=== PATIENT | female | born 1985 | race American Indian/Alaskan Native ===

== ENCOUNTER 2021-01-02 19:31 | Emergency (ER) | payer MEDICAID ==
--- NOTE | 2021-01-02 20:23 | Event Note ---
ED Screening Note Date of service: 01/02/21 Time: 20:22 ED Screening Note: Pt c/o sudden onset of periumbilical pain x today 12 weeks , denies vaginal bleeding or urinary sxs hx of periumbilical hernia-hernia noted on exam with significant tenderness-pt states unable to reduce This initial assessment/diagnostic orders/clinical plan/treatment(s) is/are subject to change based on patients health status, clinical progression and re- assessment by fellow clinical providers in the ED. Further treatment and workup at subsequent clinical providers discretion. Patient/guardian urged not to elope from the ED as their condition may be serious if not clinically assessed and managed. Initial orders include: labs US
[2021-01-02 20:47] LABS: Bilirubin,Urine NEG (Negative); Blood,Urine NEG (Negative); Color,Urine Yellow (Yellow); Mucus,Urine FEW /HPF; Protein,Urine <15 mg/dL mg/dL (Negative); WBC,Urine < 1.0 /HPF (0.0-6.0)
[2021-01-02 20:48] LABS: Basophils # (Auto) 0.1 K/mm3 (0.0-0.1); Basophils % (Auto) 1.1 % (0.0-1.8); Eosinophils # (Auto) 0.1 K/mm3 (0.0-0.4); Eosinophils % (Auto) 2.1 % (0.0-4.3); Hematocrit 35.8 % (30.3-42.9); Hemoglobin 11.8 gm/dl (10.1-14.3); Lymphocytes # (Auto) 2.1 K/mm3 (1.2-5.4); Lymphocytes % (Auto) 30.9 % (13.4-35.0); Mean Corpuscular HGB Conc 33 % (30-34); Mean Corpuscular Volume 84 fl (79-97); Monocytes # (Auto) 0.4 K/mm3 (0.0-0.8); Monocytes % (Auto) 6.2 % (0.0-7.3); Platelet Count 195 K/mm3 (140-440); Red Blood Count 4.25 M/mm3 (3.65-5.03); Red Cell Distribution Width 13.5 % (13.2-15.2)
[2021-01-02 21:12] LABS: Alanine Aminotransferase 15 units/L (7-56); Albumin 3.8 g/dL (3.9-5); Blood Urea Nitrogen 12 mg/dL (7-17); Calcium 8.9 mg/dL (8.4-10.2); Hemolysis Index 9
[2021-01-02 21:13] LABS: BUN/Creatinine Ratio 17
--- NOTE | 2021-01-02 22:11 | Ultrasound Report ---
ULTRASOUND ABDOMEN, COMPLETE INDICATION: periumbilical hernia, pain, unable to reduce. COMPARISON: No relevant prior imaging study available. FINDINGS: Pancreas: No significant abnormality. Abdominal Aorta: Normal size. IVC: No significant abnormality. Liver: The liver measures 14.8 cm in length. No significant abnormality. Normal hepatopedal blood fl ow in the main portal vein. Gallbladder: Collapsed with no acute abnormality. Bile ducts: No significant abnormality. Common bile duct measures 1 mm. Kidneys: Right: 11.9 cm in length. No significant abnormality. Left: 11.1 cm in length. No signif icant abnormality. Spleen: No significant abnormality. Free fluid: None. Additional Findings: None. IMPRESSION: 1. No sonographic abnormality of the abdomen. Signer Name: Michael Franklin MD Signed: 01/02/2021 10:06 PM Workstation Name: [id number]
[2021-01-02 22:13] VITALS: BP 128/70
--- NOTE | 2021-01-02 22:13 | Ultrasound Report ---
OB Ultrasound HISTORY: pain, 12 weeks . TECHNIQUE: Grayscale and color imaging performed. COMPARISON: No recent comparison imaging FINDINGS: Transabdominal and endovaginal imaging was performed. Uterus measures 12.2 x 8.3 x 7.8 cm. Uterus appears lobulated most likely representing fibroid diseas e. There is an intrauterine gestation with crown-rump length measuring 3.4 cm correlating with an EGA of 10 weeks and 2 days. Estimated gestational age clinically is 10 weeks and 1 day. heart rate is 176 bpm. There are bilateral ovarian cysts which are most likely functional. A tiny nabothian cyst is also pre sent. IMPRESSION: Single viable intrauterine gestation as above. Signer Name: Michael Franklin MD Signed: 01/02/2021 10:09 PM Workstation Name: [id number]
--- NOTE | 2021-01-02 22:41 | Emergency Department Report ---
ED Abdominal Pain HPI - General Chief Complaint: Abdominal Pain Stated Complaint: 10WKS PREG/ABD PAIN PUI?: No Time Seen by Provider: 01/02/21 20:20 Source: patient Mode of arrival: Ambulatory Limitations: No Limitations - History of Present Illness Initial Comments: CC: "Pain at my hernia. HPI: This is a 35 yo female who is curently 10 weeks 1 day who presents wtih severe 10/10 pain at site of umbilical hernia which occurred this afternoon. Sharp pain at the umbilical hernia radiating to epigastric region. She denies vomiting or constipation. She ate prior to pain onset. Pain was relieved when she laid flat for ultrasound exam. She denies vaginal bleeding. Provider at triage documented tender hernia upon arrival. NANCY 07/30/2021 Complaint: abdominal pain -: Gradual, This evening Location: periumbilical Radiation: epigastric Severity: severe Severity scale (0 -10): 8 Quality: sharp Consistency: now resolved Improves With: other (laying flat) Worsens With: other (certain position and palpation) Context: other (hx of umbilical hernia) Associated Symptoms: denies other symptoms - Related Data Home Medications Medication Instructions Recorded Confirmed Last Taken Spironolactone [Aldactone] 25 mg PO QDAY 09/08/15 10/19/15 10/18/15 09:00 amLODIPine [Norvasc] 5 mg PO DAILY 09/08/15 10/19/15 10/18/15 09:00 Allergies Allergy/AdvReac Type Severity Reaction Status Date / Time Penicillins AdvReac Unknown Verified 09/08/15 11:57 ED Review of Systems ROS: Stated complaint: 10WKS PREG/ABD PAIN Other details as noted in HPI Comment: All other systems reviewed and negative Constitutional: denies: fever, malaise Respiratory: denies: cough, shortness of breath Gastrointestinal: abdominal pain. denies: vomiting, diarrhea ED Past Medical Hx - Past Medical History Previous Medical History?: Yes Hx Hypertension: Yes Additional medical history: Umbilical Hernia - Surgical History Past Surgical History?: Yes Additional Surgical History: x 1. x 2 - Social History Smoking Status: Never Smoker Substance Use Type: None - Medications Home Medications: Home Medications Medication Instructions Recorded Confirmed Last Taken Type Spironolactone [Aldactone] 25 mg PO QDAY 09/08/15 10/19/15 10/18/15 09:00 History amLODIPine [Norvasc] 5 mg PO DAILY 09/08/15 10/19/15 10/18/15 09:00 History ED Physical Exam - General Limitations: No Limitations General appearance: alert, in no apparent distress, other (pleasant, smiling, appears comfortable) - Head Head exam: Present: atraumatic, normocephalic - Eye Eye exam: Present: normal appearance - ENT ENT exam: Present: mucous membranes moist - Neck Neck exam: Present: normal inspection, full ROM - Respiratory Respiratory exam: Present: normal lung sounds bilaterally. Absent: respiratory distress, wheezes, rales, rhonchi - Cardiovascular Cardiovascular Exam: Present: regular rate, normal rhythm, normal heart sounds. Absent: systolic murmur, diastolic murmur, rubs, gallop - GI/Abdominal GI/Abdominal exam: Present: soft, normal bowel sounds, hernia (small 2 cm soft reducible hernia while in supine), other (gravid abdomen). Absent: tenderness, guarding, rebound - Extremities Exam Extremities exam: Present: normal inspection - Neurological Exam Neurological exam: Present: alert, oriented X3 - Psychiatric Psychiatric exam: Present: normal affect, normal mood - Skin Skin exam: Present: warm, dry, intact, normal color. Absent: rash ED Course Vital Signs 01/02/21 01/02/21 20:16 22:13 Temperature 98.6 F Pulse Rate 71 75 Respiratory 17 16 Rate Blood Pressure 148/76 Blood Pressure 128/70 [Right] O2 Sat by Pulse 100 99 Oximetry ED Medical Decision Making - Lab Data Result diagrams: 01/02/21 20:30 01/02/21 20:30 Laboratory Results - last 24 hr 01/02/21 01/02/21 01/02/21 20:23 20:30 20:30 WBC 6.8 RBC 4.25 Hgb 11.8 Hct 35.8 MCV 84 MCH 28 MCHC 33 RDW 13.5 Plt Count 195 Lymph % (Auto) 30.9 Frontier % (Auto) 6.2 Eos % (Auto) 2.1 Baso % (Auto) 1.1 Lymph # (Auto) 2.1 Frontier # (Auto) 0.4 Eos # (Auto) 0.1 Baso # (Auto) 0.1 Seg Neutrophils % 59.7 Seg Neutrophils # 4.1 Sodium 140 Potassium 4.3 Chloride 104.0 Carbon Dioxide 25 Anion Gap 15 BUN 12 Creatinine 0.7 Estimated GFR > 60 BUN/Creatinine Ratio 17 Glucose 146 H Calcium 8.9 Total Bilirubin < 0.20 AST 13 ALT 15 Alkaline Phosphatase 34 L Total Protein 6.2 L Albumin 3.8 L Albumin/Globulin Ratio 1.6 Lipase 28 HCG, Quant Urine Color Yellow Urine Turbidity Clear Urine pH 6.0 Ur Specific [place] 1.029 Urine Protein <15 mg/dl Urine Glucose (UA) Neg Urine Ketones Neg Urine Blood Neg Urine Nitrite Neg Urine Bilirubin Neg Urine Urobilinogen 2.0 Ur Leukocyte Esterase Neg Urine WBC (Auto) < 1.0 Urine RBC (Auto) 1.0 U Epithel Cells (Auto) 1.0 Urine Mucus Few 01/02/21 20:30 WBC RBC Hgb Hct MCV MCH MCHC RDW Plt Count Lymph % (Auto) Frontier % (Auto) Eos % (Auto) Baso % (Auto) Lymph # (Auto) Frontier # (Auto) Eos # (Auto) Baso # (Auto) Seg Neutrophils % Seg Neutrophils # Sodium Potassium Chloride Carbon Dioxide Anion Gap BUN Creatinine Estimated GFR BUN/Creatinine Ratio Glucose Calcium Total Bilirubin AST ALT Alkaline Phosphatase Total Protein Albumin Albumin/Globulin Ratio Lipase HCG, Quant 33548 H Urine Color Urine Turbidity Urine pH Ur Specific [place] Urine Protein Urine Glucose (UA) Urine Ketones Urine Blood Urine Nitrite Urine Bilirubin Urine Urobilinogen Ur Leukocyte Esterase Urine WBC (Auto) Urine RBC (Auto) U Epithel Cells (Auto) Urine Mucus - Radiology Data Radiology results: report reviewed ULTRASOUND ABDOMEN, COMPLETE INDICATION: periumbilical hernia, pain, unable to reduce. COMPARISON: No relevant prior imaging study available. FINDINGS: Pancreas: No significant abnormality. Abdominal Aorta: Normal size. IVC: No significant abnormality. Liver: The liver measures 14.8 cm in length. No significant abnormality. Normal hepatopedal blood flow in the main portal vein. Gallbladder: Collapsed with no acute abnormality. Bile ducts: No si gnificant abnormality. Common bile duct measures 1 mm. Kidneys: Right: 11.9 cm in length. No significant abnormality. Left: 11.1 cm in length. No significant abnormality. Spleen: No significant abnormality. Free fluid: None. Additional Findings: None. IMPRESSION: 1. No sonographic abnormality of the abdomen. OB Ultrasound HISTORY: pain, 12 weeks . TECHNIQUE: Grayscale and color imaging performed. COMPARISON: No recent comparison imaging FINDINGS: Transabdominal and endovaginal imaging was performed. Uterus measures 12.2 x 8.3 x 7.8 cm. Uterus appears lobulated most likely representing fibroid disease. There is an intrauterine gestation with crown-rump length measuring 3.4 cm correlating with an EGA of 10 weeks and 2 days. Estimated gestational age clinically is 10 weeks and 1 day. heart rate is 176 bpm. There are bilateral ovarian cysts which are most likely functional. A tiny nabothian cyst is also present. IMPRESSION: Single viable intrauterine gestation as above. - Medical Decision Making Clinical impression: Incarcerated hernia spontaneously reduced with position change during ultrasound examination. Patient was given education on how to reduce hernia at home. She explained that normally she is able to push it in. She understands to increase intra-abdominal pressure while will make the hernia prone to incarceration. She understands to lay flat and apply ice if she is unable to immediately reduce the hernia. CBC chemistry within normal limits. Ultrasound reveals viable IUP, abdominal ultrasound did not reveal acute inflammatory process. Patient is discharged home. Critical care attestation.: If time is entered above; I have spent that time in minutes in the direct care of this critically ill patient, excluding procedure time. ED Disposition Clinical Impression: Incarcerated umbilical hernia Disposition: DC-01 TO HOME OR SELFCARE Is pt being admited?: No Does the pt Need Aspirin: No Condition: Stable Instructions: Abdominal Pain (ED), Umbilical Hernia, Adult Referrals: ZHANNA COLBY MD [Primary Care Provider] - 3-5 Days
== END 2021-01-02 22:57 | disposition home or self-care (01) ==
LOC: ED 19:31
DX: O99.611 Diseases of the digestive system complicating pregnancy, first trimester (principal); K42.0 Umbilical hernia with obstruction, without gangrene; Z3A.10 10 weeks gestation of pregnancy; I10 Essential (primary) hypertension; Z98.890 Other specified postprocedural states; Z79.899 Other long term (current) drug therapy; Z88.0 Allergy status to penicillin
CPT/HCPCS: 36415; 76700; 76801; 76817; 80053; 81001; 83690; 84702; 85025

== ENCOUNTER 2021-07-12 13:04 | Outpatient (CLI) | payer MEDICAID ==
[2021-07-12] MEDS ORDERED: ACETAMINOPHEN 500 MG TAB PO NR (15:38)
[2021-07-12 16:18] VITALS: BP 120/75
[2021-07-12 18:53] LABS: Color,Urine Yellow (Yellow)
[2021-07-12 18:57] LABS: Bilirubin,Urine NEG (Negative); Blood,Urine NEG (Negative); Mucus,Urine 1+ /HPF
== END 2021-07-12 16:33 | disposition home or self-care (01) ==
LOC: TRG 13:04 → APU 13:05 → TRG 16:33
PROVIDERS: ATTEND Obstetrics & Gynecology
DX: Z34.93 Encounter for supervision of normal pregnancy, unspecified, third trimester (principal); Z3A.38 38 weeks gestation of pregnancy
CPT/HCPCS: 59025; 81001

== ENCOUNTER 2021-07-13 14:21 | Outpatient (CLI) | payer MEDICAID ==
[2021-07-13 15:19] VITALS: BP 132/71
== END 2021-07-13 16:26 | disposition home or self-care (01) ==
LOC: TRG 14:21 → APU 14:23 → TRG 16:26
DX: O26.893 Other specified pregnancy related conditions, third trimester (principal); R10.9 Unspecified abdominal pain; Z3A.38 38 weeks gestation of pregnancy
CPT/HCPCS: 59025

== ENCOUNTER 2021-07-16 15:45 | Inpatient (IN) | payer MEDICAID ==
[2021-07-16 17:24] LABS: Bacteria,Urine 1+ /HPF (Negative); Bilirubin,Urine NEG (Negative); Blood,Urine NEG (Negative); Color,Urine Yellow (Yellow); Mucus,Urine 3+ /HPF
[2021-07-16 17:48] LABS: Basophils % (Auto) 0.9 % (0.0-1.8); Eosinophils # (Auto) 0.1 K/mm3 (0.0-0.4); Eosinophils % (Auto) 1.4 % (0.0-4.3); Hematocrit 38.4 % (30.3-42.9); Hemoglobin 12.4 gm/dl (10.1-14.3); Lymphocytes # (Auto) 1.3 K/mm3 (1.2-5.4); Lymphocytes % (Auto) 23.6 % (13.4-35.0); Mean Corpuscular HGB Conc 32 % (30-34); Mean Corpuscular Volume 85 fl (79-97); Monocytes # (Auto) 0.5 K/mm3 (0.0-0.8); Monocytes % (Auto) 8.4 % (0.0-7.3); Platelet Count 125 K/mm3 (140-440); Red Blood Count 4.51 M/mm3 (3.65-5.03); Red Cell Distribution Width 14.6 % (13.2-15.2)
[2021-07-16 18:02] LABS: Alanine Aminotransferase 22 units/L (7-56); Uric Acid 4.5 mg/dL (3.5-7.6)
[2021-07-16] MEDS ORDERED: LIDOCAINE (2%) 20 MG/1 ML VIAL 20 ML MDV INFILTRATI ONE (19:42)
[2021-07-16] MEDS ORDERED: METHYLERGONOVINE MALEATE 0.2 MG/ML VIAL IM PRN (19:42)
[2021-07-16] MEDS ORDERED: TERBUTALINE 1 MG/1 ML INJ SUB-Q PRN (19:42)
[2021-07-16] MEDS ORDERED: OXYTOCIN 10 UNIT/1 ML INJ IM PRN (19:42)
[2021-07-16] MEDS ORDERED: LOPERAMIDE 2 MG CAP PO PRN (19:42)
[2021-07-16] MEDS ORDERED: miSOPROStol 200 MCG TAB PR PRN (19:42)
[2021-07-16] MEDS ORDERED: MINERAL OIL 30 ML ORAL LIQD PO PRN (19:42)
[2021-07-16] MEDS ORDERED: ACETAMINOPHEN 325 MG TAB PO PRN ×2 (19:42→21:40)
[2021-07-16] MEDS ORDERED: fentaNYL 100 MCG/2 ML INJ IV PRN (19:42)
[2021-07-16] MEDS ORDERED: CARBOPROST TROMETHAMINE 250 MCG/1 ML INJ IM PRN (19:42)
[2021-07-16] MEDS ORDERED: NalbUPHINE 10 MG/1 ML INJ IV PRN (19:42)
[2021-07-16] MEDS ORDERED: VANCOMYCIN/NS 1 GM/250 ML 1 GM/250 ML BAG IV SCH (20:00)
[2021-07-16] MEDS ORDERED: OXYTOCIN DRIP 30 UNITS/500 ML BAG IV SCH ×2 (20:00)
[2021-07-16] MEDS: LACTATED RINGERS 1,000 ML IV SCH (20:50)
--- NOTE | 2021-07-16 21:05 | History and Physical Report ---
History of Present Illness Date of examination: 07/16/21 Date of admission: 07/16/21 19:43 Chief complaint: Sent here by [facility] for delivery. History of present illness: 36 year old presents for delivery. Patient was sent by [facility] for delivery due to borderline oligohydramnios, chronic hypertension, obesity. Patient received care at [facility] and labs are available. LMP 10/23/2020. EDC 07/30/2021. 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 labs are as follows: B+, antibody screen negative, rubella immune, hepatitis B surface antigen negative, HIV negative, RPR nonreactive, hemoglobin electrophoresis AA, gonorrhea negative, chlamydia negative, trichomonas negative, cystic fibrosis negative, spinal muscular atrophy negative, OSB negative, NIPS low risk, 1 hour sugar test 162 (normal 3 hour OGTT), GBS unknown. Past History Past Medical History: other (umbilical hernia, obesity, chronic hypertension, eczema, IBS, vitamin D deficiency) Past Surgical History: section, other (EAB) [facility] History: herpes (on suppression, no lesions or prodromal symptoms), trichomonas (treated and cured), other (HPV) Family/Genetic History: none Social history: lives with family, full code. denies: smoking, alcohol abuse, prescription drug abuse, IV drug use - Obstetrical History Expected Date of Delivery: 07/30/21 Actual Gestation: 38 Week(s) 0 Day(s) : 5 Para: 3 Hx # Term Pregnancies: 3 Number of Pregnancies: 0 Spontaneous Abortions: 0 Induced : 1 Number of Living Children: 3 Medications and Allergies Allergies Allergy/AdvReac Type Severity Reaction Status Date / Time Penicillins AdvReac Severe Anaphylaxis Verified 07/12/21 13:27 Home Medications Medication Instructions Recorded Confirmed Last Taken Type Spironolactone [Aldactone] 25 mg PO QDAY 09/08/15 10/19/15 10/18/15 09:00 History amLODIPine [Norvasc] 5 mg PO DAILY 09/08/15 10/19/15 10/18/15 09:00 History Active Meds: Active Medications Acetaminophen (Acetaminophen 325 Mg Tab) 650 mg PO Q4H PRN PRN Reason: Pain, Mild (1-3) Carboprost Tromethamine (Carboprost Tromethamine 250 Mcg/1 Ml Inj) 250 mcg IM ONCE PRN PRN Reason: Uterine Bleeding Ephedrine Sulfate (Ephedrine Sulfate 50 Mg/1 Ml Inj) 10 mg IV Q2M PRN PRN Reason: Hypotension Fentanyl (Fentanyl 100 Mcg/2 Ml Inj) 100 mcg IV Q2H PRN PRN Reason: Pain,Severe (7-10) LABOR PAIN Oxytocin/Sodium Chloride (Pitocin/Ns 30 Unit/500ml) 30 units in 500 mls @ 2 mls/hr IV TITR KELLY; Protocol Lactated Ringer's (Lactated Ringers) 1,000 mls @ 125 mls/hr IV DIRECT KELLY Last Admin: 07/16/21 20:50 Dose: 125 mls/hr Documented by: Oxytocin/Sodium Chloride (Pitocin/Ns 30 Unit/500ml) 30 units in 500 mls @ 40 mls/hr IV TITR KELLY; Protocol Vancomycin HCl (Vancomycin/Ns 1 Gm/250 Ml) 1 gm in 250 mls @ 166.667 mls/hr IV Q12H KELLY; Protocol Loperamide HCl (Loperamide 2 Mg Cap) 2 mg PO ONCE PRN PRN Reason: give with Hemabate Methylergonovine Maleate (Methylergonovine Maleate 0.2 Mg/Ml Vial) 0.2 mg IM ONCE PRN PRN Reason: Uterine Bleeding Mineral Oil (Mineral Oil 30 Ml Oral Liqd) 30 ml PO QHS PRN PRN Reason: Constipation Misoprostol (Misoprostol 200 Mcg Tab) 800 mcg ND ONCE PRN PRN Reason: Uterine Bleeding Nalbuphine HCl (Nalbuphine 10 Mg/1 Ml Inj) 10 mg IV Q2H PRN PRN Reason: Pain, Moderate (4-6) Oxytocin (Oxytocin 10 Unit/1 Ml Inj) 10 unit IM ONCE PRN PRN Reason: Uterine Bleeding Terbutaline Sulfate (Terbutaline 1 Mg/1 Ml Inj) 0.25 mg SUB-Q ONCE PRN PRN Reason: Hyperstimulation/Hypertonicity Review of Systems All systems: negative (contractions) - Vital Signs Vital signs: Vital Signs Pulse BP 90 140/88 07/16/21 16:32 07/16/21 16:32 Temp Pulse Resp BP Pulse Ox 98.9 F 84 17 130/74 99 07/16/21 19:40 07/16/21 20:59 07/16/21 19:40 07/16/21 20:42 07/16/21 20:59 ROM plus negative. Low platelet count. 2+ protein on UA. - Physical Exam Abdomen: Positive: normal appearance, soft. Negative: distention, tenderness, guarding, rigidity Genitourinary (Female): Positive: normal external genitalia, normal perenium. Negative: perineal/vulvar lesions (no lesions seen on careful exam with bright light upon admission) Vagina: Positive: normal moisture Uterus: Positive: enlarged. Negative: tender Anus/Rectum: Positive: normal perianal skin Extremities: Negative: tenderness - Obstetrical FHR: category 1 Uterine Contraction Monitor Mode: External Cervical Dilatation: 1.5 (Exam by Dr. Morales) Cervical Effacement Percentage: 70 station: -2 Uterine Contraction Pattern: Irregular Uterine Contraction Intensity: Mild Results Result Diagrams: 07/16/21 17:00 07/16/21 17:00 Abnormal lab results 07/16/21 07/16/21 07/16/21 Range/Units 17:00 17:00 17:05 Plt Count 125 L (140-440) K/mm3 [place] % (Auto) 8.4 H (0.0-7.3) % Creatinine 0.5 L (0.6-1.2) mg/dL Lactate Dehydrogenase 215 H (91-180) units/L U Epithel Cells (Auto) 15.0 H (0-13.0) /HPF All other labs normal. Assessment and Plan A: at 38 weeks gestation. Preeclampsia superimposed on chronic hypertension. Obesity. Borderline oligohydramnios. Previous section and 2 previous successful VBACs. HSV 2 positive with no lesions or prodromal symptoms. GBS unknown. P: Admit. Continuous EFM. Preeclamptic labs. Patel bulb for augmentation of labor. Valtrex for continued suppression of HSV 2. Vancomycin for GBS prophylaxis. Consulted with Dr. Morales re: this patient.
[2021-07-16 21:11] LABS: Alanine Aminotransferase 23 units/L (7-56); Albumin 3.3 g/dL (3.9-5); Blood Urea Nitrogen 5 mg/dL (7-17); Calcium 8.6 mg/dL (8.4-10.2); Hemolysis Index 7
[2021-07-16 21:12] LABS: BUN/Creatinine Ratio 10
--- NOTE | 2021-07-16 21:38 | Event Note ---
Date: 07/16/21 pt evaluated and FHR category I remains. Plan of care discussed again with the double chow stein's balloon and pt agreed. Double chow 80/80cc placed under aseptic technique. Will give low dose pitocin, consents signed for TOLAC. pelvic 1-2/70/-2 vx/intact. pt with irregular ctx. Expect
[2021-07-16] MEDS ORDERED: BUTORPHANOL 2 MG/1 ML INJ IV PRN (21:40)
[2021-07-16] MEDS: fentaNYL 100 MCG/2 ML INJ IV PRN (22:10)
[2021-07-16] MEDS: valACYclovir 500 MG TAB PO SCH (22:15)
[2021-07-17] MEDS: fentaNYL 100 MCG/2 ML INJ IV PRN ×2 (03:35→18:20)
[2021-07-17] MEDS: LACTATED RINGERS 1,000 ML IV SCH ×4 (05:03→19:54)
--- NOTE | 2021-07-17 09:06 | Event Note ---
Date: 07/17/21 pt evaluated and chow bulb removed by gentle traction and pelvic now -/-2; FHR category I and pitocin at 6mu/min; pt desires something to eat. IV pitocin turned off. Will give diet (crackers and juice) and then restart the pitocin in 1hr. Expect . Ctx without a pattern however pt states she feels them regularly.
[2021-07-17] MEDS ORDERED: NalbUPHINE 10 MG/1 ML INJ IV PRN (19:17)
[2021-07-17] MEDS ORDERED: ePHEDrine SULFATE 50 MG/1 ML INJ IV PRN (19:17)
[2021-07-17] MEDS ORDERED: ONDANSETRON 4 MG/2 ML INJ IV PRN ×2 (19:17→22:49)
[2021-07-17] MEDS ORDERED: LACTATED RINGERS 250 ML IV SOLN IV ONE (19:17)
[2021-07-17] MEDS ORDERED: NALOXONE 2 MG/2 ML INJ IV PRN (19:17)
[2021-07-17] MEDS ORDERED: diphenhydrAMINE 50 MG/ML VIAL IV PRN (19:17)
--- NOTE | 2021-07-17 19:34 | Event Note ---
Date: 07/17/21 Pt allowed to rest, ate meal and pitocin restarted. AROM done with clear fluid and IUPC placed. Nurse told to increase pitocin to make contractions adequate. FHR category I. Expect
[2021-07-17] MEDS ORDERED: fentaNYL-BUPIV 2 MCG/ML-0.125% 200 MCG/100 ML BAG EPIDURAL SCH (20:00)
--- NOTE | 2021-07-17 20:10 | Progress Note ---
Labor Epidural - Labor Epidural Start Time: 19:25 Stop Time: 19:37 Performed by:: DAREN BUCK Procedure: Patient is requesting epidural for labor and pain. H&P, labs were reviewed. Patient IDed, H&P reviewed, all questions and concerns were answered, and consent was signed. Timeout was performed at bedside. Patient in sitting position. Sterile prep and drape was performed. 3ml of 1% lidocaine skin wheal at L[3]- L [4]. 18-gauge [employer] epidural needle was advanced to loss of resistance with air technique 9cm. Negative CSF negative blood. Epidural catheter advanced to [14] centimeters. [negative] Aspiration [negative] test dose. Sterile dressing applied. Patient tolerated procedure.
--- NOTE | 2021-07-17 20:10 | Anesthesia Consultation ---
Anesthesia Consult and Med Hx Date of service: 07/17/21 - Airway Anesthetic Teeth Evaluation: Good ROM Head & Neck: Adequate Mental/Hyoid Distance: Adequate Mallampati Class: Class III Intubation Access Assessment: Possibly Difficult - Pulmonary Exam CTA: Yes - Cardiac Exam Cardiac Exam: RRR - Pre-Operative Health Status ASA Pre-Surgery Classification: ASA2 Proposed Anesthetic Plan: Epidural - Pulmonary Hx Smoking: No Hx Asthma: No COPD: No Hx Pneumonia: No Hx Sleep Apnea: No - Cardiovascular System Hx Hypertension: Yes Hx Heart Attack/AMI: No Hx Angina: No - Central Nervous System Hx Seizures: No Hx Psychiatric Problems: No - Gastrointestinal Hx Gastroesophageal Reflux Disease: No - Endocrine Hx Renal Disease: No Hx End Stage Renal Disease: No Hx Liver Disease: No Hx Insulin Dependent Diabetes: No Hx Non-Insulin Dependent Diabetes: No Hx Hypothyroidism: No Hx Hyperthyroidism: Yes - Hematic Hx Anemia: Yes Hx Sickle Cell Disease: No - Other Systems Hx Alcohol Use: No Hx Obesity: Yes
[2021-07-17] MEDS: ePHEDrine SULFATE 50 MG/1 ML INJ IV PRN ×2 (20:28→22:49)
[2021-07-17] MEDS ORDERED: ceFAZolin/Water 2 GM/20 ML 2 GM/20 ML SYRINGE IV ONE ×2 (22:10→23:00)
[2021-07-17] MEDS ORDERED: miSOPROStol 100 MCG TAB ONE (22:11)
--- NOTE | 2021-07-17 22:45 | Procedure Note ---
OB Delivery Note - Delivery Date of Delivery: 07/17/21 Surgeon: REMIGIO ESCOBAR Estimated blood loss: 100cc - Vaginal Delivery presentation: vertex Delivery position: OA Intrapartum events: other(please specify) (oligohydramnios) Delivery induction: other (Patel bulb and low dose pitocin) Delivery augmentation: pitocin Delivery monitor: external FHT, external uterine, internal FHT, internal uterine Route of delivery: Delivery placenta: spontaneous Delivery cord: nuchal cord (x1) Episiotomy: none Delivery laceration: none Anesthesia: epidural Delivery comments: protracted labor with successful of viable male , vertex with nuchal cord x1 and baby delivered thru same. Delayed placenta delivery, and it was spontaneous and appeared heart shaped, possibly with accessory lobe and same sent to pathology. Bimanual exam with small bleed and cervix examined entirely and no lacerations noted. Uterus firm after bimanual exam. GREGORIA nurse present and baby to be observed in NICU for transition of 2hrs. APGARS 8/9. - Infant A at 1 minute: 8 at 5 minutes: 9 Infant Gender: Male ([id number])
[2021-07-17] MEDS ORDERED: PROMETHAZINE 25 MG TAB PO PRN (22:49)
[2021-07-17] MEDS ORDERED: diphenhydrAMINE 50 MG/ML VIAL IV ONE (22:49)
[2021-07-17] MEDS ORDERED: diphenhydrAMINE 25 MG CAP PO PRN (22:49)
[2021-07-17] MEDS ORDERED: WITCH HAZEL/ GLYCERIN PAD TP PRN (22:49)
[2021-07-17] MEDS ORDERED: MAGNESIUM HYDROXIDE (MOM) ORAL LIQD UDC PO PRN (22:49)
[2021-07-17] MEDS ORDERED: LANOLIN/ZINC/DIMETHICONE (LANSINOH) 7 GM TP PRN (22:49)
[2021-07-17] MEDS ORDERED: PROMETHAZINE 25 MG RECT SUPP PR PRN (22:49)
[2021-07-18] MEDS: valACYclovir 500 MG TAB PO SCH ×3 (02:35→22:33)
[2021-07-18] MEDS: oxyCODONE /ACETAMINOPHEN 5-325MG TAB PO PRN ×4 (02:35→23:05)
[2021-07-18] MEDS: IBUPROFEN 600 MG TAB PO SCH (06:15)
--- NOTE | 2021-07-18 10:17 | Progress Note ---
Assessment and Plan Successful , PPD#1 with thrombocytopenia doing fair 2. Repeat routine cbc for platelet trends 3. Routine care Consider discharge home on 07/19/21 if pt remains stable Subjective Date of service: 07/18/21 Principal diagnosis: sucessful PPD#1 Interval history: pt states that she feels tired, denies shortness of breath. Vag bleed like a period without clots. Pt plans to try and breast feed later today. Pt also states that the percocet med more helpful than the motrin med. Objective - Constitutional Vitals: Vital Signs - 12hr 07/17/21 07/17/21 07/17/21 22:16 22:21 22:24 Temperature Pulse Rate 107 H 96 H 97 H Respiratory Rate Blood Pressure 119/57 80/48 Blood Pressure [Left] O2 Sat by Pulse 100 100 Oximetry O2 Sat by Pulse Oximetry [ Anterior Bilateral Throughout] 07/17/21 07/17/21 07/17/21 22:26 22:27 22:31 Temperature Pulse Rate 96 H 96 H 95 H Respiratory Rate Blood Pressure 128/60 Blood Pressure [Left] O2 Sat by Pulse 100 100 Oximetry O2 Sat by Pulse Oximetry [ Anterior Bilateral Throughout] 07/17/21 07/17/21 07/17/21 22:36 22:41 22:44 Temperature Pulse Rate 85 96 H 91 H Respiratory Rate Blood Pressure Blood Pressure [Left] O2 Sat by Pulse 100 100 90 Oximetry O2 Sat by Pulse Oximetry [ Anterior Bilateral Throughout] 07/17/21 07/17/21 07/17/21 22:45 22:46 22:47 Temperature 97.2 F L Pulse Rate 97 H 82 Respiratory Rate Blood Pressure 120/56 Blood Pressure [Left] O2 Sat by Pulse 99 Oximetry O2 Sat by Pulse Oximetry [ Anterior Bilateral Throughout] 07/17/21 07/17/21 07/17/21 22:51 22:56 23:01 Temperature Pulse Rate 77 84 81 Respiratory Rate Blood Pressure Blood Pressure [Left] O2 Sat by Pulse 99 98 99 Oximetry O2 Sat by Pulse Oximetry [ Anterior Bilateral Throughout] 07/17/21 07/17/21 07/17/21 23:04 23:06 23:11 Temperature Pulse Rate 89 92 H 85 Respiratory Rate Blood Pressure Blood Pressure [Left] O2 Sat by Pulse 93 97 100 Oximetry O2 Sat by Pulse Oximetry [ Anterior Bilateral Throughout] 07/17/21 07/17/21 07/17/21 23:16 23:17 23:21 Temperature Pulse Rate 76 75 85 Respiratory Rate Blood Pressure 126/58 Blood Pressure [Left] O2 Sat by Pulse 96 93 100 Oximetry O2 Sat by Pulse Oximetry [ Anterior Bilateral Throughout] 07/17/21 07/17/21 07/17/21 23:26 23:31 23:36 Temperature Pulse Rate 76 82 79 Respiratory Rate Blood Pressure 131/63 Blood Pressure [Left] O2 Sat by Pulse 100 98 98 Oximetry O2 Sat by Pulse Oximetry [ Anterior Bilateral Throughout] 07/17/21 07/17/21 07/17/21 23:41 23:46 23:47 Temperature Pulse Rate 86 84 83 Respiratory Rate Blood Pressure 118/56 Blood Pressure [Left] O2 Sat by Pulse 98 99 Oximetry O2 Sat by Pulse Oximetry [ Anterior Bilateral Throughout] 07/17/21 07/17/21 07/18/21 23:51 23:56 00:01 Temperature Pulse Rate 92 H 89 86 Respiratory Rate Blood Pressure 118/58 Blood Pressure [Left] O2 Sat by Pulse 98 97 98 Oximetry O2 Sat by Pulse Oximetry [ Anterior Bilateral Throughout] 07/18/21 07/18/21 07/18/21 00:06 00:11 00:16 Temperature Pulse Rate 87 79 83 Respiratory Rate Blood Pressure 121/55 Blood Pressure [Left] O2 Sat by Pulse 99 99 99 Oximetry O2 Sat by Pulse Oximetry [ Anterior Bilateral Throughout] 07/18/21 07/18/21 07/18/21 00:21 00:26 00:31 Temperature Pulse Rate 86 92 H 86 Respiratory Rate Blood Pressure Blood Pressure [Left] O2 Sat by Pulse 98 98 100 Oximetry O2 Sat by Pulse Oximetry [ Anterior Bilateral Throughout] 07/18/21 07/18/21 07/18/21 00:32 00:36 00:41 Temperature Pulse Rate 90 83 88 Respiratory Rate Blood Pressure 119/59 Blood Pressure [Left] O2 Sat by Pulse 99 98 Oximetry O2 Sat by Pulse Oximetry [ Anterior Bilateral Throughout] 07/18/21 07/18/21 07/18/21 00:46 00:51 01:16 Temperature 98.2 F Pulse Rate 87 84 Respiratory Rate Blood Pressure 118/58 Blood Pressure [Left] O2 Sat by Pulse 98 87 Oximetry O2 Sat by Pulse Oximetry [ Anterior Bilateral Throughout] 07/18/21 07/18/21 01:40 08:23 Temperature 98.1 F 97.8 F Pulse Rate 87 84 Respiratory 16 20 Rate Blood Pressure 115/59 Blood Pressure 137/59 [Left] O2 Sat by Pulse 98 97 Oximetry O2 Sat by Pulse 98 Oximetry [ Anterior Bilateral Throughout] General appearance: Present: no acute distress - Respiratory Respiratory effort: normal - Breasts Breasts: normal - Cardiovascular Rhythm: regular Extremities: No edema - Gastrointestinal General gastrointestinal: Present: non-tender - Genitourinary Female genitourinary: other (Uterus firm 2cm below the umbilicus and non-tender) - Neurologic Neurologic: moves all extremities - Psychiatric Psychiatric: cooperative - Labs CBC & Chem 7: 07/16/21 17:00 07/16/21 20:49 Medications & Allergies - Medications Allergies/Adverse Reactions: Allergies Penicillins Adverse Reaction (Severe, Verified 07/12/21 13:27) Anaphylaxis Home Medications: Home Medications Medication Instructions Recorded Confirmed Last Taken Type Spironolactone [Aldactone] 25 mg PO QDAY 09/08/15 10/19/15 10/18/15 09:00 History amLODIPine [Norvasc] 5 mg PO DAILY 09/08/15 10/19/15 10/18/15 09:00 History Active Medications: Generic Name Dose Route Start Last Admin Trade Name Freq PRN Reason Stop Dose Admin Acetaminophen 650 mg 07/16/21 21:40 Acetaminophen 325 Mg Tab PO Q4H PRN Pain, Mild (1-3) Bisacodyl 10 mg 07/17/21 22:49 Bisacodyl 10 Mg Rect Supp NC BID PRN Constipation Butorphanol Tartrate 1 mg 07/16/21 21:40 Butorphanol 2 Mg/1 Ml Inj IV Q2H PRN Pain, Moderate(4-6) LABOR PAIN Carboprost Tromethamine 250 mcg 07/16/21 19:42 Carboprost Tromethamine 250 Mcg/1 Ml Inj IM ONCE PRN Uterine Bleeding Diphenhydramine HCl 12.5 mg 07/17/21 19:17 Diphenhydramine 50 Mg/Ml Vial IV Q2H PRN Itching Diphenhydramine HCl 25 mg 07/17/21 22:49 Diphenhydramine 25 Mg Cap PO Q6H PRN Itching Ephedrine Sulfate 10 mg 07/16/21 19:42 07/17/21 22:49 Ephedrine Sulfate 50 Mg/1 Ml Inj IV 10 mg Q2M PRN Administration Hypotension Fentanyl 100 mcg 07/16/21 21:40 07/17/21 18:20 Fentanyl 100 Mcg/2 Ml Inj IV 100 mcg Q2H PRN Administration Pain,Severe (7-10) LABOR PAIN Oxytocin/Sodium Chloride 30 units in 500 mls @ 2 mls/hr 07/16/21 20:00 07/17/21 18:46 Pitocin/Ns 30 Unit/500ml IV 12 ml/hr TITR KELLY 12 mls/hr Titration Protocol Lactated Ringer's 1,000 mls @ 125 mls/hr 07/16/21 19:45 07/17/21 19:54 Lactated Ringers IV 1,200 mls/hr DIRECT KELLY Administration Oxytocin/Sodium Chloride 30 units in 500 mls @ 40 mls/hr 07/16/21 20:00 Pitocin/Ns 30 Unit/500ml IV TITR KELLY Protocol Fentanyl/Bupivacaine/Sodium Chlor 200 mcg in 100 mls @ 12 mls/hr 07/17/21 20:00 07/17/21 20:19 Fentanyl-Bupiv 2 Mcg/Ml-0.125% EPIDURAL 12 mls/hr TITR KELLY Administration Protocol Ibuprofen 600 mg 07/17/21 23:00 07/18/21 06:15 Ibuprofen 600 Mg Tab PO 600 mg Q6HR KELLY Administration Loperamide HCl 2 mg 07/16/21 19:42 Loperamide 2 Mg Cap PO ONCE PRN give with Hemabate Magnesium Hydroxide 30 ml 07/17/21 22:49 Magnesium Hydroxide (Mom) Oral Liqd Udc PO HS PRN Constipation Methylergonovine Maleate 0.2 mg 07/16/21 19:42 Methylergonovine Maleate 0.2 Mg/Ml Vial IM ONCE PRN Uterine Bleeding Mineral Oil 30 ml 07/16/21 19:42 Mineral Oil 30 Ml Oral Liqd PO QHS PRN Constipation Multi-Ingredient Ointment 1 applic 07/17/21 22:49 Lanolin/Zinc/Dimethicone (Lansinoh) 7 Gm TP PRN PRN Sore Nipples Multivitamins/Iron/Calcium 1 each 07/18/21 10:00 [id number] Fumarate-Folic Acid Vit Tab PO QDAY KELLY Nalbuphine HCl 10 mg 07/16/21 19:42 Nalbuphine 10 Mg/1 Ml Inj IV Q2H PRN Pain, Moderate (4-6) Nalbuphine HCl 2.5 mg 07/17/21 19:17 Nalbuphine 10 Mg/1 Ml Inj IV Q2H PRN Itching Naloxone HCl 0.2 mg 07/17/21 19:17 Naloxone 2 Mg/2 Ml Inj IV Q5M PRN Respiratory sedation Ondansetron HCl 4 mg 07/17/21 19:17 Ondansetron 4 Mg/2 Ml Inj IV Q8H PRN Nausea And Vomiting Ondansetron HCl 4 mg 07/17/21 22:49 Ondansetron 4 Mg/2 Ml Inj IV Q8H PRN Nausea And Vomiting Oxycodone/Acetaminophen 1 tab 07/17/21 22:49 07/18/21 02:35 Oxycodone /Acetaminophen 5-325mg Tab PO 1 tab Q6H PRN Administration Pain, Moderate (4-6) Oxytocin 10 unit 07/16/21 19:42 Oxytocin 10 Unit/1 Ml Inj IM ONCE PRN Uterine Bleeding Promethazine HCl 25 mg 07/17/21 22:49 Promethazine 25 Mg Rect Supp NC Q6H PRN Nausea And Vomiting Promethazine HCl 25 mg 07/17/21 22:49 Promethazine 25 Mg Tab PO Q6H PRN Nausea And Vomiting Sodium Chloride 10 ml 07/17/21 23:00 Sodium Chloride 0.9% 10 Ml Flush Syringe IV 07/18/21 22:59 PRN NR Terbutaline Sulfate 0.25 mg 07/16/21 19:42 Terbutaline 1 Mg/1 Ml Inj SUB-Q ONCE PRN Hyperstimulation/Hypertonicity Valacyclovir HCl 500 mg 07/16/21 22:00 07/18/21 02:35 Valacyclovir 500 Mg Tab PO 500 mg BID KELLY Administration Witch Mandi/Glycerin 1 each 07/17/21 22:49 Witch Mandi/ Glycerin Pad TP PRN PRN Hemorrhoid/cleansing/soothing
[2021-07-18 10:56] LABS: Hemoglobin 11.6 gm/dl (10.1-14.3); Mean Corpuscular HGB Conc 33 % (30-34); Mean Corpuscular Volume 85 fl (79-97); Platelet Count 105 K/mm3 (140-440); Red Blood Count 4.12 M/mm3 (3.65-5.03); Red Cell Distribution Width 14.2 % (13.2-15.2)
[2021-07-18] MEDS: PRENATAL VIT27-FE FUMARATE-FOLIC ACID VIT TAB PO SCH (10:59)
--- NOTE | 2021-07-18 12:11 | Post Anesthesia Evaluation ---
- Post Anesthesia Evaluation Patient Participated: Yes Airway Patent: Yes Stable Respiratory Function: Yes Nausea/Vomiting: No Temp > 96.8F: Yes Pain Manageable: Yes Adequeate Hydration: Yes Anesthesia Complications: No Block Receding Appropriately: Yes Patient on Ventilator: No
[2021-07-18 17:10] LABS: Total Cells Counted 100
[2021-07-18 17:11] LABS: Band Neutrophils # (Manual) 0.4 K/mm3; Myelocytes # (Manual) 0.1 K/mm3; Platelet Estimate Consistent w Auto
[2021-07-19] MEDS: oxyCODONE /ACETAMINOPHEN 5-325MG TAB PO PRN (05:30)
[2021-07-19] MEDS: IBUPROFEN 600 MG TAB PO SCH (06:13)
[2021-07-19 06:23] LABS: Hemoglobin 11.4 gm/dl (10.1-14.3); Mean Corpuscular HGB Conc 33 % (30-34); Mean Corpuscular Volume 86 fl (79-97); Platelet Count 108 K/mm3 (140-440); Red Blood Count 4.08 M/mm3 (3.65-5.03); Red Cell Distribution Width 14.4 % (13.2-15.2)
[2021-07-19] MEDS ORDERED: CYCLOBENZAPRINE 10 MG TAB PO PRN (06:39)
--- NOTE | 2021-07-19 06:39 | Event Note ---
Date: 07/19/21 Patient reports she feels soreness in both arms and both legs. States Percocet helps the pain but states Ibuprofen does not help. States she wants to try a muscle relaxer to see if it will help her pain since she will not have Percocet at home to take. Patient is bottlefeeding. Flexeril ordered.
[2021-07-19] MEDS: valACYclovir 500 MG TAB PO SCH (09:10)
[2021-07-19] MEDS: PRENATAL VIT27-FE FUMARATE-FOLIC ACID VIT TAB PO SCH (09:10)
--- NOTE | 2021-07-19 10:49 | Progress Note ---
Assessment and Plan A: S/P A: S/P Thrombocytopenia p: D/C home per pt 's request per Dr Darnell Subjective - Subjective Date of service: 07/19/21 Principal diagnosis: sucessful PPD#1 Patient reports: appetite normal, voiding normally, pain well controlled, ambulating normally, other (Pt states she is feeling well. She reported sore muscles earlier, but she thinks it was related to her pushing position during delivery. ) : doing well, bottle feeding Objective - Vital Signs Latest vital signs: Vital Signs Temp Pulse Resp BP Pulse Ox Pulse Ox 07/19/21 08:41 98.2 F 62 18 134/64 99 07/19/21 08:00 98 07/19/21 05:30 18 07/19/21 00:57 97.9 F 76 20 124/72 100 07/19/21 00:00 98 07/18/21 23:05 18 99 07/18/21 19:30 98 07/18/21 18:02 16 07/18/21 16:48 98.1 F 75 18 132/71 99 07/18/21 12:11 98.2 F 86 20 134/66 98 07/18/21 11:07 16 Intake and Output 07/18/21 07/19/21 07/19/21 22:59 06:59 14:59 Intake Total 1080 480 Balance 1080 480 Intake: Oral 720 480 Intake, Free Water 360 Other: Total, Intake Amount 240 120 # Voids Void 1 1 - Exam Breasts: Present: normal Abdomen: Present: normal appearance, soft, normal bowel sounds Vulva: both: normal Uterus: Present: normal, firm, fundal height below umbilicus Extremities: Present: normal - Labs Labs: Abnormal lab results 07/18/21 07/19/21 Range/Units 10:32 05:43 Plt Count 105 L 108 L (140-440) K/mm3 Seg Neuts % (Manual) 81.0 H (40.0-70.0) % Lymphocytes % (Manual) 5.0 L (13.4-35.0) % Lymphocytes # (Manual) 0.4 L (1.2-5.4) K/mm3
--- NOTE | 2021-07-19 10:57 | Discharge Summary ---
Providers - Providers Date of Admission: 07/16/21 19:43 Date of discharge: 07/19/21 Attending physician: SAMINA AVERY MD Primary care physician: SAMINA AVERY MD Hospitalization Reason for admission: induction of labor Delivery: Episiotomy: none Laceration: none Other procedures: none complications: other (thrombocytopenia) Discharge diagnosis: IUP at term delivered [place] baby: male Hospital course: Pt was sent to [facility] for an IOL by [facility] r/t chronic htn, and oligo. She had a . Pt had thrombocytopenia upon admin, but was cleared for d/c by Dr Darnell. She had also complained of muscle soreness after delivery and was started on Flexeril post del with good results.. See H&P, delivery summary, and pp notes. Condition at discharge: Stable Disposition: 01 HOME / SELF CARE / HOMELESS Plan - Discharge Medications Prescriptions: Ibuprofen [Motrin Ib] 600 tab PO Q6HR PRN #60 capsule PRN Reason: Menstrual Cramps - Provider Discharge Summary Additional instructions: [] Smoking cessation referral if applicable(refer to patient education folder for contact #) [] Refer to [facility]'s [facility] Booklet Call your doctor immediately for: * Fever > 100.5 * Heavy vaginal bleeding ( >1 pad per hour) * Severe persistent headache * Shortness of breath * Reddened, hot, painful area to leg or breast * Drainage or odor from incision. * Keep incision clean and dry at all times and follow doctor's instructions regarding bathing/showering - Follow up plan Follow up: SAMINA AVERY MD [Primary Care Provider] - 6 Weeks Forms: [facility] Discharge Summary
[2021-07-19 14:15] VITALS: BP 135/58
== END 2021-07-19 13:20 | disposition home or self-care (01) | DRG 774 ==
LOC: TRG 15:45 → APU 15:47 → TRG 19:43 → LD 19:43 → OBSVTOIN 19:43 → LD 20:28 → OB 07-18 01:40
PROC: 10E0XZZ Delivery of Products of Conception, External Approach (ICD-10-PCS; principal; 2021-07-17)
PROC: 10907ZC Drainage of Amniotic Fluid, Therapeutic from Products of Conception, Via Natural or Artificial Opening (ICD-10-PCS; 2021-07-17)
PROC: 10H07YZ Insertion of Other Device into Products of Conception, Via Natural or Artificial Opening (ICD-10-PCS; 2021-07-17)
PROC: 0U7C7ZZ Dilation of Cervix, Via Natural or Artificial Opening (ICD-10-PCS; 2021-07-17)
PROC: 3E033VJ Introduction of Other Hormone into Peripheral Vein, Percutaneous Approach (ICD-10-PCS; 2021-07-17)
PROC: 3E0R3BZ Introduction of Anesthetic Agent into Spinal Canal, Percutaneous Approach (ICD-10-PCS; 2021-07-17)
PROC: 00HU33Z Insertion of Infusion Device into Spinal Canal, Percutaneous Approach (ICD-10-PCS; 2021-07-17)
DX: O11.4 Pre-existing hypertension with pre-eclampsia, complicating childbirth (principal); O98.52 Other viral diseases complicating childbirth; O41.03X0 Oligohydramnios, third trimester, not applicable or unspecified; Z37.0 Single live birth; O34.219 Maternal care for unspecified type scar from previous cesarean delivery; Z3A.38 38 weeks gestation of pregnancy; O99.214 Obesity complicating childbirth; O99.284 Endocrine, nutritional and metabolic diseases complicating childbirth; E55.9 Vitamin D deficiency, unspecified; Z20.822 Contact with and (suspected) exposure to COVID-19; Z88.0 Allergy status to penicillin; B00.9 Herpesviral infection, unspecified; O99.02 Anemia complicating childbirth; D64.9 Anemia, unspecified; E05.90 Thyrotoxicosis, unspecified without thyrotoxic crisis or storm; O99.12 Other diseases of the blood and blood-forming organs and certain disorders involving the immune mechanism complicating childbirth; D69.6 Thrombocytopenia, unspecified; O69.81X0 Labor and delivery complicated by cord around neck, without compression, not applicable or unspecified
CPT/HCPCS: 36415; 80053; 81001; 82565; 83615; 84112; 84450; 84460; 84550; 85007; 85025; 85027; 86592; 86850; 86900; 86901; 88307; G0378; J0690; J2590; J3010; J7120; U0003